=== PATIENT | female | born 1985 | race Caucasian/White ===

== ENCOUNTER 2022-05-08 21:45 | Emergency (ER) | payer MEDICARE ==
[~2022-05-08] VITALS: Ht 149.9 cm; Wt 83.3 kg
[2022-05-08 22:03] VITALS: BP 130/72
== END 2022-05-08 23:30 | disposition left against medical advice (07) ==
LOC: ER 21:45
DX: Z53.21 Procedure and treatment not carried out due to patient leaving prior to being seen by health care provider (principal)
CPT/HCPCS: 81025